=== PATIENT | male | born 1970 | race Caucasian/White ===

== ENCOUNTER 2023-03-25 08:21 | Inpatient (IN) | payer OTHER, SELFPAY ==
[2023-03-25 08:23] VITALS: BP 166/93; PULSE 96; RESP 22; TEMP 34.4; O2SAT 91; BMI 29.5
--- NOTE | 2023-03-25 08:40 | EDS_ITS ---
HPI History of Present Illness Chief Complaint: Substance Abuse Informant: patient Onset/Context/Timing Onset: Today Context: Gradual Onset Timing: Continuous Worsened by: Nothing Relieved by: Nothing Associated Symptoms Associated Symptoms: Negative for vomiting*, diarrhea*, fever*, rash*, seizure, tremor, palpatations, change in mental status, trauma, suicidal ideation or homicidal ideation Narrative Narrative: Patient presents requesting alcohol detox. Patient states he drinks approximately 12 beers per day. Patient states he has been drinking for the past 10 years. Patient denies any prior detox admissions. Patient states his last drink was approximately 7 AM today. Patient denies any suicidal or homicidal ideations. Patient denies any palpitations, seizures, or tremors. Patient denies any visual or auditory hallucinations. Patient denies any zeenat sea, vomiting, or diarrhea. PFSH PFSH Medical History no medical history no medical history Home Medications furosemide 20 mg tablet 20 mg PO DAILY 03/25/23 [History Last Taken 03/24/23] Allergy/AdvReac Type Severity Reaction Status Date / Time No Known Allergies Allergy Verified 03/25/23 08:22 Surgical History (Updated 03/25/23 @ 08:[address] Scott Robin DO) History of lumbar fusion History of lumbar laminectomy Social History Smoking Status: Current every day smoker tobacco type: cigarettes ROS ROS ED Constitutional Constitutional ED: Reports chills and subjective; Denies fever(s) Eyes Eyes: Denies blurry vision or change in vision ENT ENT ED: Denies rhinorrhea or sore throat Cardiovascular Cardiovascular: Denies chest pain or palpitations Respiratory/Chest Respiratory/Chest: Denies cough or dyspnea Gastrointestinal Gastrointestinal: Denies nausea or vomiting Genitourinary Genitourinary ED: Denies dysuria or hematuria Musculoskeletal Musculoskeletal: Denies back pain or neck pain Integumentary Denies abscess or rash Neurologic Neurologic: Denies headache(s) or weakness Allergic/Immunologic Allergic/Immunologic ED: Denies mouth swelling or urticaria EXAM Physical Exam Const Vital Signs: 03/25/23 08:23 Temperature 94 F L Temperature Source Temporal Pulse Rate 96 Respiratory Rate 22 H Blood Pressure 166/93 H Blood Pressure Mean 117 Pulse Ox 91 Oxygen Delivery Method Room Air Positive well nourished and well developed General Appearance ED: well developed and NAD HEENT Reports moist mucous membranes Eyes General Eye ED: Yes scleral icterus Neck supple and no JVD Resp normal respiratory effort and clear to auscultation bilaterally Cardio regular rate, regular rhythm and no murmurs GI normal to inspection, nondistended, normoactive bowel sounds and non-tender Palpation: soft Extremity normal to inspection General Extremety ED: Negative for edema or tenderness General Extremity: Negative for edema Neuro oriented x3, CN's II-XII intact bilaterally and no sensory deficits noted Sensorium / Orientation: alert Motor Exam: strength 5/5 throughout Psych mental status grossly normal MDM MDM MDM Narrative Medical decision making narrative: Medical screening labs will be obtained. CBC will be obtained to assess for leukocytosis and anemia. Comprehensive metabolic profile will be obtained to assess for hepatic function, renal function, and electrolyte abnormality. Lipase will be obtained to assess for alcoholic pancreatitis. PT was INR and PTT will be obtained to assess for coagulopathy. Serum alcohol level will be obtained to assess for alcohol intoxication. Urine tox screen will be obtained to assess for substance abuse. Case will be discussed with the hospitalist for admission. Lab Data Attestation: I reviewed the patient's lab results. Lab results narrative: CBC was reviewed and showed a slightly low white blood cell count at 4.3. Platelets were slightly low at 127. PT with INR and PTT were reviewed. Pro time was 15.3 and INR is 1.2. PTT was normal. Comprehensive metabolic profile was reviewed. Potassium was slightly low at 2.8. AST was slightly elevated at 46. ALT was normal at 29. Bilirubin was normal. Alkaline phos was slightly elevated at 157. Lipase was reviewed and was normal at 75. Serum alcohol level was reviewed and was elevated at 190. Labs: Laboratory Results - last 24 hr 03/25/23 09:20 WBC 4.3 L RBC 4.06 L Hgb 14.7 Hct 44.6 MCV 109.9 H MCH 36.2 H MCHC 33.0 RDW Std Deviation 55.5 H RDW Coeff of Fabio 13.4 Plt Count 127 L MPV 9.5 Immature Gran % (Auto) 0.200 Neut % (Auto) 76.3 H Lymph % (Auto) 14.7 L Upson % (Auto) 7.8 Eos % (Auto) 0.5 Baso % (Auto) 0.5 Absolute Neuts (auto) 3.3 Absolute Lymphs (auto) 0.64 L Nucleated RBC % 0 PT 15.3 H INR 1.2 APTT 26.5 Sodium 136 Potassium 2.8 L Chloride 96 L Carbon Dioxide 32.0 Anion Gap 8 BUN 4 L Creatinine 0.83 Estim Creat Clear Calc 116.87 Est GFR (MDRD) Af Amer 126 Est GFR (MDRD) Non-Af 104 BUN/Creatinine Ratio 4.8 L Glucose 138 H Calcium 8.2 L Total Bilirubin 0.60 AST 46 H ALT 29 Alkaline Phosphatase 157 H Total Protein 6.0 L Albumin 3.0 L Globulin 3.0 Albumin/Globulin Ratio 1.0 Lipase 75 Ethyl Alcohol 190.0 Management Discussion w/another healthcare provider: Hospitalist Treatment and Re-Evaluation Narrative: Patient was given a dose of oral potassium here. Patient was given a nicotine patch. Case was discussed with the hospitalist. She will be in to evaluate the patient and admit the patient to the hospital for alcohol detox. Patient understood and was agreeable with the plan. All questions were answered. Discharge Plan Triage Chief Complaint: Substance Abuse ED Provider: Scott Robin Dx/Rx/DC Orders Clinical Impression: ETOH abuse, Alcohol withdrawal, Tobacco abuse Prescriptions: No Action furosemide 20 mg tablet 20 mg PO DAILY Primary Care Provider: Odalys Cardoso Referrals: Odalys Cardoso, [facility] [Primary Care Provider] - Disposition Disposition: Acute Care Hospital [facility]
[2023-03-25 09:35] LABS: Absolute Lymphocyte Count 0.64 X10^3/uL (0.83-4.51); Absolute Neutrophil Count 3.3 X10^3/uL (2.0-7.7); Basophil# 0.02 X10^3/uL; Basophil% 0.5 % (0-1); Eosinophil# 0.02 X10^3/uL; Eosinophils% 0.5 % (0-5); Hematocrit 44.6 % (40-54); Hemoglobin 14.7 g/dL (13.0-16.5); Lymphocyte # 0.64 X10^3/ul (0.83-4.51); Lymphocyte % 14.7 % (19-41); Mean Corpuscular Hgb 36.2 pg (27.0-32.0); Mean Corpuscular Volume 109.9 fL (80-94); Mean Platelet Vol. 9.5 fl (6.2-12.0); Monocyte# 0.34 X10^3/uL; Monocyte% 7.8 % (0-10); NRBC Flagged by Analyzer 0 % (0-5); Neutrophil # 3.31 X10^3/uL (2.7-7.7); Neutrophil % 76.3 % (47-70); Platelet Count 127 K/mm3 (150-450); RBC Distribution Width CV 13.4 % (11.6-14.6); RBC Distribution Width SD 55.5 fl (35.1-43.9); Red Blood Count 4.06 M/mm3 (4.6-6.2); White Blood Count 4.3 K/mm3 (4.4-11.0)
[2023-03-25 09:42] LABS: International Normalized Ratio 1.2; Partial Thromboplast Time 26.5 Seconds (24.1-36.2); Prothrombin Time (Protime)PT. 15.3 SECONDS (11.7-14.9)
[2023-03-25 09:50] LABS: AST(SGOT) 46 U/L (15-37); Alanine Aminotransfer ALT/SGPT 29 U/L (16-61); Alkaline Phosphatase 157 U/L (45-117); Anion Gap 8 (5-15); BUN 4 mg/dL (7-18); BUN/Creat Ratio 4.8 RATIO (10-20); Calcium,Total 8.2 mg/dL (8.5-10.1); Chloride 96 mmol/L (98-107); Creatinine, Serum 0.83 mg/dL (0.70-1.30); EST Glomerular Filtration Rate 104 mL/min (>60); Est Glom Filt Rate - Afr Amer 126 mL/min (>60); Estimated Creatinine Clearance 116.87 ml/min; Glucose 138 mg/dL (74-106); Lipase 75 U/L (13-75); Potassium 2.8 mmol/L (3.5-5.1); Sodium Level 136 mmol/L (136-145)
--- NOTE | 2023-03-25 09:57 | PCM.HP.STD ---
HPI - General General Date of Admission: 03/25/23 Date of Service: 03/25/23 Chief Complaint: Requesting alcohol detox HPI Narrative TU BASURTO, is a 52 M with history of tobacco use, alcohol use, spinal fusion laminectomy with provoked DVT in 2014 no longer on anticoagulation, DEMETRIO no longer using his CPAP who presented to [facility] 03/25/2023 requesting alcohol detox. He has drank 12 large 12% beers daily for many years and if he does not drink he gets significant shakes making it hard to even write, has not on longer than a day or 2 and many years without drinking due to the symptoms but is motivated to quit and said he has been unable to do so on his own which is why he chose today to come in. Last drink at 7 AM and his EtOH level was 190. Reports occasional marijuana use but denies any other substance use. Has never been through detox and denies any DTs, alcohol withdrawal hallucinations, seizures. Does report he has occasional dry cough possibly over a couple months and runny nose, said some off-and-on shortness of breath over time but he stopped using his inhalers and stopped using his CPAP as he did not think he needed them anymore. Denies any other specific complaints [facility] Medical History no medical history Home Medications furosemide 20 mg tablet 20 mg PO DAILY 03/25/23 [History Last Taken 03/24/23] Allergy/AdvReac Type Severity Reaction Status Date / Time No Known Allergies Allergy Verified 03/25/23 08:22 Surgical History (Updated 03/25/23 @ 08:[address] Scott Robin DO) History of lumbar fusion History of lumbar laminectomy Social History Smoking Status: Current every day smoker tobacco type: cigarettes ROS ROS Narrative General: Denies fever/chills HENT: Denies headache, occasional runny nose, denies sore throat EYES: Chronic changes in vision Resp: Occasional dry cough, denies shortness of breath at this time, endorses occasional shortness of breath Cardiac: Denies chest pain GI: Denies abdominal pain, denies changes in bowel, denies nausea/vomiting : Denies changes in urination Extremity: Denies swelling at this time MSK: Denies local weakness Neuro: Denies any numbness/tingling Heme: Denies any bleeding or bruising Skin: Chronic LE changes, blister that is now flacid and not draining on second toe with no erythema or pain Psychiatric: No complaints voiced Vital Signs Vital Signs Vital Signs: 03/25/23 08:23 Temperature 94 F L Temperature Source Temporal Pulse Rate 96 Respiratory Rate 22 H Blood Pressure 166/93 H Blood Pressure Mean 117 Pulse Ox 91 Oxygen Delivery Method Room Air Weight Weight: 98.747 kg Body Mass Index (BMI) 29.5 Physical Exam Narrative General: Alert, oriented, no apparent distress HEENT: Atraumatic, normocephalic Eyes: Anicteric, slightly injected conjunctive a, extraocular movements grossly intact Neck: Supple Respiratory: Somewhat coarse on right greater than left, normal respiratory effort Cardiovascular: Regular rate and rhythm GI: Soft, nontender, nondistended Extremities: No pitting edema Musculoskeletal: Moving all extremities Neuro: No overt focal neurological deficits Skin: Chronic changes in bilateral lower extremities Psych: Cooperative Results Lab / Micro Data 03/25/23 09:20 03/25/23 09:20 Labs: Laboratory Results - last 24 hr 03/25/23 09:20: WBC 4.3 L, RBC 4.06 L, Hgb 14.7, Hct 44.6, MCV 109.9 H, MCH 36.2 H, MCHC 33.0, RDW Std Deviation 55.5 H, RDW Coeff of Fabio 13.4, Plt Count 127 L, MPV 9.5, Immature Gran % (Auto) 0.200, Neut % (Auto) 76.3 H, Lymph % (Auto) 14.7 L, Letcher % (Auto) 7.8, Eos % (Auto) 0.5, Baso % (Auto) 0.5, Absolute Neuts (auto) 3.3, Absolute Lymphs (auto) 0.64 L, Nucleated RBC % 0, PT 15.3 H, INR 1.2, APTT 26.5, Sodium 136, Potassium 2.8 L, Chloride 96 L, Carbon Dioxide 32.0, Anion Gap 8, BUN 4 L, Creatinine 0.83, Estim Creat Clear Calc 116.87, Est GFR (MDRD) Af Amer 126, Est GFR (MDRD) Non-Af 104, BUN/Creatinine Ratio 4.8 L, Glucose 138 H, Calcium 8.2 L, Total Bilirubin 0.60, AST 46 H, ALT 29, Alkaline Phosphatase 157 H, Total Protein 6.0 L, Albumin 3.0 L, Globulin 3.0, Albumin/Globulin Ratio 1.0, Lipase 75, Ethyl Alcohol 190.0 Assessment & Plan Assessment/Plan (1) ETOH abuse: (2) DEMETRIO (obstructive sleep apnea): (3) Tobacco abuse: (4) Hypokalemia: PLAN: Plan #Alcohol use disorder - We will begin CIWA every 4 for 24 hours, then every 6 for 24 hours, then every 12 until discharge -Will begin phenobarbital taper, given extensive drinking history will also have Ativan for additional as needed coverage -Gabapentin 300 mg every 8 as needed -Will start Bentyl and hydroxyzine as needed as well as loperamide as needed -Trazodone 100 mg p.o. nightly as needed sleep -Begin thiamine and folic acid supplementation -Zofran as needed for nausea -Case management consult to assist with discharge planning -EtOH level 109 #DEMETRIO -Not compliant with home CPAP, CPAP ordered for here and will encourage compliance on an outpatient basis -Not actively complaining of shortness of breath with O2 sat suboptimal and patient reports history of COPD and previous inhalers, will start nebs, can consider chest x-ray if no improvement or if patient has includes complaints #Elevated MCV -Without acute anemia, likely secondary to nutritional deficiencies, start B12 and folate and will check levels #Hypokalemia -Replace #Tobacco use -Advise cessation -Patient agreeable to nicotine replacement #History of provoked DVT and PE -In 2014 after a spinal fusion and laminectomy -Completed anticoagulation and has not required any since per patient #DVT ppx: Lovenox subcu Kaylee Maravilla MD Time spent in the patient's overall evaluation,decision-making process, review of diagnostic data, adjustment of management, discussion with other providers, nursing nursing and ancillary staff involved in patient's care documentation, 60 minutes Charges/Coding Visit Charges Inpatient E&M: 41847 Init Hosp L2
[2023-03-25 10:25] VITALS: BP 170/90; PULSE 92; RESP 18; TEMP 36.7; O2SAT 93
[2023-03-25 11:13] VITALS: BMI 29.4
[2023-03-25 11:21] VITALS: BP 142/67; PULSE 88; RESP 16; TEMP 36.4; O2SAT 97
[2023-03-25 11:23] LABS: Amphetamine Urine VISTA NEGATIVE (<1000 ng/mL); Barbiturate Urine VISTA NEGATIVE (< 200 ng/mL); Benzodiazepine Urine VISTA NEGATIVE (< 200 ng/mL); Cocaine Urine VISTA NEGATIVE (< 300 ng/mL); Ecstacy Urine VISTA NEGATIVE (< 500 ng/mL); Methadone Urine VISTA NEGATIVE (< 300 ng/mL); PCP Urine VISTA NEGATIVE (< 25 ng/mL); THC Urine VISTA POSITIVE (< 50 ng/mL); Vista UDS pH Range 6
[2023-03-25] MEDS: Potassium Chloride Oral Tablet 20 MEQ 40 MEQ PO (11:35)
[2023-03-25] MEDS: Phenobarbital 32.4 MG Tablet PO ×3 (12:01→19:57)
[2023-03-25] MEDS: Enoxaparin 40 MG/0.4 ML Syringe SC (12:01)
[2023-03-25] MEDS: Potassium Chloride Oral Tablet 20 MEQ 60 MEQ PO (12:45)
[2023-03-25 15:22] VITALS: BP 152/78; PULSE 98; RESP 16; TEMP 36.6; O2SAT 92
[2023-03-25] MEDS: Gabapentin 300 MG Capsule PO (18:02)
[2023-03-25] MEDS: Dicyclomine 10 MG Capsule 20 MG PO (18:43)
[2023-03-25] MEDS: Ondansetron 8 MG Tablet PO (18:43)
[2023-03-25 19:25] VITALS: PULSE 86; RESP 18; O2SAT 86
[2023-03-25] MEDS: Ipratropium/Albuterol Sulfate 3 ML AMPUL.NEB INHALATION (19:25)
--- NOTE | 2023-03-25 19:25 | CPS ---
Added oxygen to pt at 3 lpm via nasal cannula.
[2023-03-25] MEDS: hydrOXYzine PAM 25 MG Capsule 50 MG PO (19:57)
[2023-03-25 20:00] VITALS: BP 161/92; PULSE 88; RESP 20; TEMP 36.7; O2SAT 98
[2023-03-26] VITALS (8 sets, daily range): BP systolic 132–152; BP diastolic 68–90; PULSE 87–99; RESP 14–20; TEMP 36.8–37.2; O2SAT 93–99
[2023-03-26] MEDS: hydrOXYzine PAM 25 MG Capsule 50 MG PO ×6 (00:23→23:54)
[2023-03-26] MEDS: Phenobarbital 32.4 MG Tablet PO ×7 (00:23→23:53)
[2023-03-26] MEDS: traZODone 100 MG Tablet PO ×2 (00:23→23:53)
[2023-03-26] MEDS: Ipratropium/Albuterol Sulfate 3 ML AMPUL.NEB INHALATION ×4 (01:05→19:29)
[2023-03-26 07:41] LABS: ALB/GLOB Ratio 0.9 RATIO (0.9-2.4); AST(SGOT) 37 U/L (15-37); Alanine Aminotransfer ALT/SGPT 22 U/L (16-61); Albumin, Serum 2.8 g/dL (3.2-5.0); Alkaline Phosphatase 154 U/L (45-117); Anion Gap 5 (5-15); BUN 6 mg/dL (7-18); BUN/Creat Ratio 6.8 RATIO (10-20); Calcium,Total 8.2 mg/dL (8.5-10.1); Chloride 97 mmol/L (98-107); Creatinine, Serum 0.88 mg/dL (0.70-1.30); EST Glomerular Filtration Rate 98 mL/min (>60); Est Glom Filt Rate - Afr Amer 118 mL/min (>60); Estimated Creatinine Clearance 110.23 ml/min; Globulin 3.2 g/dL (2.2-4.2); Glucose 90 mg/dL (74-106); Magnesium 1.5 mg/dL (1.6-2.6); Potassium 4.1 mmol/L (3.5-5.1); Sodium Level 136 mmol/L (136-145); Thyroid Stim Hormone (TSH) 5.43 uIU/mL (0.358-3.74)
[2023-03-26 08:32] LABS: Vitamin B12 252 pg/mL (211-911)
[2023-03-26] MEDS: Gabapentin 300 MG Capsule PO ×2 (08:33→16:21)
[2023-03-26] MEDS: Cyanocobalamin 500 MCG Tablet 1000 MCG PO (08:33)
[2023-03-26] MEDS: Thiamine Hydrochloride 100 MG Tablet PO (08:34)
[2023-03-26] MEDS: Enoxaparin 40 MG/0.4 ML Syringe SC (08:34)
[2023-03-26] MEDS: Folic Acid 1 MG Tablet PO (08:34)
--- NOTE | 2023-03-26 09:40 | PN.HOSP_ITS ---
Reason for Visit Reason for Visit: Diagnoses Hypokalemia (03/25/23) Alcohol abuse, uncomplicated (03/25/23) Obstructive sleep apnea (adult) (pediatric) (03/25/23) Tobacco use (03/25/23) Subjective Subjective Feeling better today, still slightly shaky but less so, when he starts to fall asleep however he will start moving his arms around like he is trying to do his work but wakes up and is cognizant that this is not what he had been doing. Oth erwise denies any AH/ Objective Data Objective Data Vital Signs: Vital Signs Temp Pulse Resp BP Pulse Ox O2 Del Method O2 Flow Rate 99.0 F 88 16 151/90 H 93 Nasal Cannula 3 03/26/23 04:38 03/26/23 06:59 03/26/23 06:59 03/26/23 04:38 03/26/23 06:59 03/26/23 06:59 03/26/23 06:59 Oxygen Flow Rate (L/min) 3 Oxygen Delivery Method Nasal Cannula Weight: 98.3 kg Body Mass Index (BMI) 29.4 Intake & Output: Intake and Output for Last 24 Hours 03/24/23 03/25/23 03/26/23 23:59 23:59 23:59 Intake Total 400 / 1200 800 / 800 Balance 400 / 1200 800 / 800 Lab / Micro Data 03/25/23 09:20 03/26/23 06:28 Labs: Laboratory Results - last 24 hr 03/25/23 09:20: PT 15.3 H, INR 1.2, APTT 26.5, Sodium 136, Potassium 2.8 L, Chloride 96 L, Carbon Dioxide 32.0, Anion Gap 8, BUN 4 L, Creatinine 0.83, Estim Creat Clear Calc 116.87, Est GFR (MDRD) Af Amer 126, Est GFR (MDRD) Non-Af 104, BUN/Creatinine Ratio 4.8 L, Glucose 138 H, Calcium 8.2 L, Total Bilirubin 0.60, AST 46 H, ALT 29, Alkaline Phosphatase 157 H, Total Protein 6.0 L, Albumin 3.0 L , Globulin 3.0, Albumin/Globulin Ratio 1.0, Lipase 75, Ethyl Alcohol 190.0 03/25/23 11:00: Urine Opiates Screen NEGATIVE, Urine Methadone Screen NEGATIVE, Ur Barbiturates Screen NEGATIVE, Ur Phencyclidine Scrn NEGATIVE, Ur Amphetamines Screen NEGATIVE, MDMA (Ecstasy) Screen NEGATIVE, U Benzodiazepines Scrn NEGATIVE, Urine Cocaine Screen NEGATIVE, U Cannabinoids Screen POSITIVE H, Ur Drug Screen Comment 03/26/23 06:28: Sodium 136, Potassium 4.1, Chloride 97 L, Carbon Dioxide 34.0 H, Anion Gap 5, BUN 6 L, Creatinine 0.88, Estim Creat Clear Calc 110.23, Est GFR (M DRD) Af Amer 118, Est GFR (MDRD) Non-Af 98, BUN/Creatinine Ratio 6.8 L, Glucose 90, Calcium 8.2 L, Magnesium 1.5 L, Total Bilirubin 1.90 H, AST 37, ALT 22, Alkaline Phosphatase 154 H, Total Protein 6.0 L, Albumin 2.8 L, Globulin 3.2, Albumin/Globulin Ratio 0.9, Vitamin B12 252, Folate 1.20 L, TSH 5.43 H Physical Exam Narrative General: Alert, oriented, no apparent distress HEENT: Atraumatic, normocephalic Eyes: Anicteric, slightly injected conjunctive a, extraocular movements grossly intact Neck: Supple Respiratory: Scattered wheezes Cardiovascular: Regular rate and rhythm GI: Soft, nontender, nondistended Extremities: No pitting edema Musculoskeletal: Moving all extremities Neuro: No overt focal neurological deficits Skin: Chronic changes in bilateral lower extremities Psych: Cooperative Assessment & Plan Assessment/Plan (1) ETOH abuse: (2) DEMETRIO (obstructive sleep apnea): (3) Tobacco abuse: (4) Hypokalemia: PLAN: Plan #Alcohol use disorder - We will begin CIWA every 4 for 24 hours, then every 6 for 24 hours, then every 12 until discharge -Will begin phenobarbital taper, given extensive drinking history will also have Ativan for additional as needed coverage -Gabapentin 300 mg every 8 as needed -Will start Bentyl and hydroxyzine as needed as well as loperamide as needed -Trazodone 100 mg p.o. nightly as needed sleep -Begin thiamine and folic acid supplementation -Zofran as needed for nausea -Case management consult to assist with discharge planning -EtOH level 109 -03/26: Continue detox #Hypoxia -Acute hypoxia likely on chronic, had desaturation of 86% yesterday evening and was placed on O2 -Likely secondary to his underlying COPD for which he has not been treating as well as his DEMETRIO for which she was noncompliant with CPAP -Nebs -We will likely need ambulated prior to DC to assess for any home O2 needs and will need to follow-up with pulmonology or his PCP for further management. Stressed compliance with medications #DEMETRIO -Not compliant with home CPAP, CPAP ordered for here and will encourage compliance on an outpatient basis #Elevated MCV -Without acute anemia, likely secondary to nutritional deficiencies, start B12 and folate and will check levels -03/26: B12 lower limit of normal, folate low, continue replacement #Hypokalemia -Replace #Tobacco use -Advise cessation -Patient agreeable to nicotine replacement #History of provoked DVT and PE -In 2014 after a spinal fusion and laminectomy -Completed anticoagulation and has not required any since per patient #DVT ppx: Lovenox subcu Kaylee Maravilla MD Time spent in the patient's overall evaluation,decision-making process, review of diagnostic data, adjustment of management, discussion with other providers, nursing nursing and ancillary staff involved in patient's care documentation, 30 minutes Charges/Coding Visit Charges Inpatient E&M: 69978 Subs Hosp L2
[2023-03-26] MEDS: Magnesium Sulfate 4gm/100mL 4 GM/100 ML IV.SOLN. IV (10:42)
--- NOTE | 2023-03-26 11:59 | ADDICTION ---
This medical technical writer met with PT to conduct ASAM, MSE, AUDIT assessments and to plan for d/c. PT A+Ox4 and participated actively. All assessments completed and placed in PT's chart. PT plans to f/u with [facility] in [place] for follow-up treatment services. PT did not indicate a need for transportation post d/c from [facility].
[2023-03-27] VITALS (9 sets, daily range): BP systolic 142–158; BP diastolic 70–89; PULSE 70–96; RESP 16–18; TEMP 36.5–36.9; O2SAT 92–98
[2023-03-27] MEDS: hydrOXYzine PAM 25 MG Capsule 50 MG PO ×2 (04:55→16:08)
[2023-03-27] MEDS: Phenobarbital 32.4 MG Tablet PO ×5 (04:55→19:57)
[2023-03-27] MEDS: Ipratropium/Albuterol Sulfate 3 ML AMPUL.NEB INHALATION ×3 (07:17→18:44)
--- NOTE | 2023-03-27 07:46 | PN.HOSP_ITS ---
Reason for Visit Reason for Visit: Diagnoses Hypokalemia (03/25/23) Alcohol abuse, uncomplicated (03/25/23) Obstructive sleep apnea (adult) (pediatric) (03/25/23) Tobacco use (03/25/23) Subjective Subjective Patient continues to have improvement in the shaking, tolerating detox well Objective Data Objective Data Vital Signs: Vital Signs Temp Pulse Resp BP Pulse Ox O2 Del Method O2 Flow Rate 97.7 F L 82 18 154/88 H 98 Nasal Cannula 3 03/27/23 05:00 03/27/23 07:19 03/27/23 07:19 03/27/23 05:00 03/27/23 07:19 03/27/23 07:19 03/27/23 07:19 Oxygen Flow Rate (L/min) 3 Oxygen Delivery Method Nasal Cannula Weight: 98.3 kg Body Mass Index (BMI) 29.4 Intake & Output: Intake and Output for Last 24 Hours 03/25/23 03/26/23 03/27/23 23:59 23:59 23:59 Intake Total 400 / 1200 2900 / 2900 243.75 / 243.75 Balance 400 / 1200 2900 / 2900 243.75 / 243.75 Lab / Micro Data 03/25/23 09:20 03/26/23 06:28 Labs: Laboratory Results - last 24 hr 03/26/23 06:28: Vitamin B12 252 Physical Exam Narrative General: Alert, oriented, no apparent distress HEENT: Atraumatic, normocephalic Eyes: Anicteric, slightly injected conjunctive a, extraocular movements grossly intact Neck: Supple Respiratory: Scattered wheezes Cardiovascular: Regular rate and rhythm GI: Soft, nontender, nondistended Extremities: No pitting edema Musculoskeletal: Moving all extremities Neuro: No overt focal neurological deficits Skin: Chronic changes in bilateral lower extremities Psych: Cooperative Assessment & Plan Assessment/Plan (1) ETOH abuse: (2) DEMETRIO (obstructive sleep apnea): (3) Tobacco abuse: (4) Hypokalemia: PLAN: Plan #Alcohol use disorder - We will begin CIWA every 4 for 24 hours, then every 6 for 24 hours, then every 12 until discharge -Will begin phenobarbital taper, given extensive drinking history will also have Ativan for additional as needed coverage -Gabapentin 300 mg every 8 as needed -Will start Bentyl and hydroxyzine as needed as well as loperamide as needed -Trazodone 100 mg p.o. nightly as needed sleep -Begin thiamine and folic acid supplementation -Zofran as needed for nausea -Case management consult to assist with discharge planning -EtOH level 109 -03/26: Continue detox -03/27: Patient continues to do well with detox, continue phenobarb taper, will be completed Friday at 2 PM. Patient plans to follow-up with [facility] in [place] for follow-up treatment services #Hypoxia?improved -Acute hypoxia likely on chronic, had desaturation of 86% yesterday evening and was placed on O2 -Likely secondary to his underlying COPD for which he has not been treating as well as his DEMETRIO for which she was noncompliant with CPAP -Nebs -We will likely need ambulated prior to DC to assess for any home O2 needs and will need to follow-up with pulmonology or his PCP for further management. Stressed compliance with medications -03/27: Improved with nebs, will resume his home furosemide as well, may need ambulated for O2 upon discharge and/or inhaler sent in if patient amenable, incentive spirometry ordered #DEMETRIO -Not compliant with home CPAP, CPAP ordered for here and will encourage compliance on an outpatient basis #Elevated MCV -Without acute anemia, likely secondary to nutritional deficiencies, start B12 and folate and will check levels -03/26: B12 lower limit of normal, folate low, continue replacement #Hypokalemia -Replace #Tobacco use -Advise cessation -Patient agreeable to nicotine replacement #History of provoked DVT and PE -In 2014 after a spinal fusion and laminectomy -Completed anticoagulation and has not required any since per patient #DVT ppx: Lovenox subcu Kaylee Maravilla MD Time spent in the patient's overall evaluation,decision-making process, review of diagnostic data, adjustment of management, discussion with other providers, nursing nursing and ancillary staff involved in patient's care documentation, 30 minutes Charges/Coding Visit Charges Inpatient E&M: 39880 Subs Hosp L2
[2023-03-27] MEDS: Thiamine Hydrochloride 100 MG Tablet PO (08:05)
[2023-03-27] MEDS: Cyanocobalamin 500 MCG Tablet 1000 MCG PO (08:05)
[2023-03-27] MEDS: Folic Acid 1 MG Tablet PO (08:05)
[2023-03-27] MEDS: Furosemide 20 MG Tablet PO (10:54)
[2023-03-27] MEDS: Enoxaparin 40 MG/0.4 ML Syringe SC (10:54)
[2023-03-27] MEDS: Gabapentin 300 MG Capsule PO (16:08)
[2023-03-28] VITALS (7 sets, daily range): BP systolic 138–161; BP diastolic 82–97; PULSE 78–86; RESP 16–18; TEMP 36.6–36.8; O2SAT 93–99
[2023-03-28] MEDS: Phenobarbital 32.4 MG Tablet PO ×4 (01:52→19:43)
[2023-03-28 06:52] LABS: Absolute Lymphocyte Count 0.61 X10^3/uL (0.83-4.51); Absolute Neutrophil Count 4.3 X10^3/uL (2.0-7.7); Basophil# 0.02 X10^3/uL; Basophil% 0.4 % (0-1); Eosinophil# 0.04 X10^3/uL; Eosinophils% 0.7 % (0-5); Hematocrit 40.3 % (40-54); Hemoglobin 13.6 g/dL (13.0-16.5); Lymphocyte # 0.61 X10^3/ul (0.83-4.51); Lymphocyte % 11.2 % (19-41); Mean Corp Hgb Conc 33.7 g/dL (32-36); Mean Corpuscular Hgb 36.9 pg (27.0-32.0); Mean Corpuscular Volume 109.2 fL (80-94); Mean Platelet Vol. 10.3 fl (6.2-12.0); Monocyte# 0.41 X10^3/uL; Monocyte% 7.5 % (0-10); NRBC Flagged by Analyzer 0 % (0-5); Neutrophil # 4.33 X10^3/uL (2.7-7.7); Neutrophil % 79.6 % (47-70); POSITIVE COUNT YES; Platelet Count 91 K/mm3 (150-450); RBC Distribution Width CV 13.3 % (11.6-14.6); RBC Distribution Width SD 54.6 fl (35.1-43.9); Red Blood Count 3.69 M/mm3 (4.6-6.2); White Blood Count 5.4 K/mm3 (4.4-11.0)
[2023-03-28 06:54] LABS: Differential Indicated SCAN CRITERIA MET
[2023-03-28] MEDS: Ipratropium/Albuterol Sulfate 3 ML AMPUL.NEB INHALATION ×3 (07:08→19:20)
[2023-03-28 07:45] LABS: ALB/GLOB Ratio 0.8 RATIO (0.9-2.4); AST(SGOT) 27 U/L (15-37); Alanine Aminotransfer ALT/SGPT 18 U/L (16-61); Albumin, Serum 2.5 g/dL (3.2-5.0); Alkaline Phosphatase 118 U/L (45-117); Anion Gap 3 (5-15); BUN 6 mg/dL (7-18); BUN/Creat Ratio 12.3 RATIO (10-20); Calcium,Total 8.3 mg/dL (8.5-10.1); Chloride 99 mmol/L (98-107); Creatinine, Serum 0.49 mg/dL (0.70-1.30); EST Glomerular Filtration Rate 193 mL/min (>60); Est Glom Filt Rate - Afr Amer 234 mL/min (>60); Estimated Creatinine Clearance 197.96 ml/min; Globulin 3.3 g/dL (2.2-4.2); Glucose 73 mg/dL (74-106); Magnesium 2.2 mg/dL (1.6-2.6); Potassium 4.9 mmol/L (3.5-5.1); Protein, Total 5.8 g/dL (6.4-8.2); Sodium Level 133 mmol/L (136-145)
--- NOTE | 2023-03-28 07:53 | PCM.PN.HOSP ---
Reason for Visit Reason for Visit: Diagnoses Hypokalemia (03/25/23) Alcohol abuse, uncomplicated (03/25/23) Obstructive sleep apnea (adult) (pediatric) (03/25/23) Tobacco use (03/25/23) Subjective Subjective Still feeling somewhat shaky but better overall today Objective Data Objective Data Vital Signs: Vital Signs Temp Pulse Resp BP Pulse Ox O2 Del Method O2 Flow Rate 97.8 F 78 18 147/82 H 93 Nasal Cannula 2 03/28/23 02:00 03/28/23 07:08 03/28/23 07:08 03/28/23 02:00 03/28/23 07:08 03/28/23 07:08 03/28/23 07:08 Oxygen Flow Rate (L/min) 2 Oxygen Delivery Method Nasal Cannula Weight: 98.3 kg Body Mass Index (BMI) 29.4 Intake & Output: Intake and Output for Last 24 Hours 03/26/23 03/27/23 03/28/23 23:59 23:59 23:59 Intake Total 2900 / 2900 1443.75 / 1443.75 Balance 2900 / 2900 1443.75 / 1443.75 Lab / Micro Data 03/28/23 05:55 03/28/23 05:55 Labs: Laboratory Results - last 24 hr 03/28/23 05:55: WBC 5.4, RBC 3.69 L, Hgb 13.6, Hct 40.3, MCV 109.2 H, MCH 36.9 H, MCHC 33.7, RDW Std Deviation 54.6 H, RDW Coeff of Fabio 13.3, Plt Count 91 L, MPV 10.3, Immature Gran % (Auto) 0.600, Neut % (Auto) 79.6 H, Lymph % (Auto) 11.2 L, Arroyo % (Auto) 7.5, Eos % (Auto) 0.7, Baso % (Auto) 0.4, Absolute Neuts (auto) 4.3, Absolute Lymphs (auto) 0.61 L, Nucleated RBC % 0, Sodium 133 L, Potassium 4.9, Chloride 99, Carbon Dioxide 31.0, Anion Gap 3 L, BUN 6 L, Creatinine 0.49 L, Estim Creat Clear Calc 197.96, Est GFR (MDRD) Af Amer 234, Est GFR (MDRD) Non-Af 193, BUN/Creatinine Ratio 12.3, Glucose 73 L, Calcium 8.3 L, Magnesium 2.2, Total Bilirubin 1.20 H, AST 27, ALT 18, Alkaline Phosphatase 118 H, Total Protein 5.8 L, Albumin 2.5 L, Globulin 3.3, Albumin/Globulin Ratio 0.8 L Physical Exam Narrative General: Alert, oriented, no apparent distress HEENT: Atraumatic, normocephalic Eyes: Anicteric, slightly injected conjunctive a, extraocular movements grossly intact Neck: Supple Respiratory: Scattered wheezes, slightly improved today Cardiovascular: Regular rate and rhythm GI: Soft, nontender, nondistended Extremities: No pitting edema Musculoskeletal: Moving all extremities Neuro: No overt focal neurological deficits Skin: Chronic changes in bilateral lower extremities Psych: Cooperative Assessment & Plan Assessment/Plan (1) ETOH abuse: (2) DEMETRIO (obstructive sleep apnea): (3) Tobacco abuse: (4) Hypokalemia: PLAN: Plan #Alcohol use disorder - We will begin CIWA every 4 for 24 hours, then every 6 for 24 hours, then every 12 until discharge -Will begin phenobarbital taper, given extensive drinking history will also have Ativan for additional as needed coverage -Gabapentin 300 mg every 8 as needed -Will start Bentyl and hydroxyzine as needed as well as loperamide as needed -Trazodone 100 mg p.o. nightly as needed sleep -Begin thiamine and folic acid supplementation -Zofran as needed for nausea -Case management consult to assist with discharge planning -EtOH level 109 -03/26: Continue detox -03/27: Patient continues to do well with detox, continue phenobarb taper, will be completed Friday at 2 PM. Patient plans to follow-up with [facility] in [place] for follow-up treatment services -03/28: Finish out detox through tomorrow and likely DC home at that time #Hypoxia?improved -Acute hypoxia likely on chronic, had desaturation of 86% yesterday evening and was placed on O2 -Likely secondary to his underlying COPD for which he has not been treating as well as his DEMETRIO for which she was noncompliant with CPAP -Nebs -We will likely need ambulated prior to DC to assess for any home O2 needs and will need to follow-up with pulmonology or his PCP for further management. Stressed compliance with medications -03/27: Improved with nebs, will resume his home furosemide as well, may need ambulated for O2 upon discharge and/or inhaler sent in if patient amenable, incentive spirometry ordered -03/28: O2 sat waxes and wanes, 93% this a.m. on 2 L, suspect component of sleep apnea decreasing sats overnight as he was noncompliant with CPAP at home #DEMETRIO -Not compliant with home CPAP, CPAP ordered for here and will encourage compliance on an outpatient basis -03/28: Encourage patient to follow-up to resume CPAP treatment #Elevated MCV -Without acute anemia, likely secondary to nutritional deficiencies, start B12 and folate and will check levels -03/26: B12 lower limit of normal, folate low, continue replacement -03/28: Hemoglobin 13.6, MCV remains high. Will likely need folic acid and B12 as well as thiamine supplementation on discharge #Thrombocytopenia -Likely secondary to underlying liver dysfunction from chronic alcohol use -We will likely need repeat CBC on outpatient basis and may need to have further work-up and management moving forward #Elevated TSH -TSH 5.43 -We will check free T4 #Hypokalemia?resolved -Replace -Repeat BMP 03/28 with resolved hypokalemia #Tobacco use -Advise cessation -Patient agreeable to nicotine replacement #History of provoked DVT and PE -In 2014 after a spinal fusion and laminectomy -Completed anticoagulation and has not required any since per patient #DVT ppx: Lovenox subcu Kaylee Maravilla MD Time spent in the patient's overall evaluation,decision-making process, review of diagnostic data, adjustment of management, discussion with other providers, nursing nursing and ancillary staff involved in patient's care documentation, 36 minutes Charges/Coding Visit Charges Inpatient E&M: 16985 Subs Hosp L2
[2023-03-28 08:02] LABS: Platelet Estimate SLT DEC (ADEQ); Platelet Morphology LARGE
[2023-03-28 08:03] LABS: Macrocytosis 1+
[2023-03-28] MEDS: Thiamine Hydrochloride 100 MG Tablet PO (08:52)
[2023-03-28] MEDS: Furosemide 20 MG Tablet PO (08:52)
[2023-03-28] MEDS: Folic Acid 1 MG Tablet PO (08:52)
[2023-03-28] MEDS: Cyanocobalamin 500 MCG Tablet 1000 MCG PO (08:53)
--- NOTE | 2023-03-28 16:21 | CASEMGMT ---
Hospitalist would like pt to have amb pox testing prior to dc. RN CM into pt room to make aware. Pt provided with a verbal local in network list of DME companies, pt chose [employer]. Pt aware of homegoing oxygen instructions should he need it. Green sheet on chart. Pt reports he wears a CPAP at night. Pt denies any further needs.
[2023-03-29 02:00] VITALS: BP 140/72; PULSE 72; RESP 16; TEMP 36.6; O2SAT 100
[2023-03-29] MEDS: Phenobarbital 32.4 MG Tablet PO ×2 (02:04→08:46)
[2023-03-29 06:52] VITALS: PULSE 75; RESP 16; O2SAT 96
[2023-03-29] MEDS: Ipratropium/Albuterol Sulfate 3 ML AMPUL.NEB INHALATION (06:52)
--- NOTE | 2023-03-29 07:51 | PCM.PN.HOSP ---
Reason for Visit Reason for Visit: Diagnoses Hypokalemia (03/25/23) Alcohol abuse, uncomplicated (03/25/23) Obstructive sleep apnea (adult) (pediatric) (03/25/23) Tobacco use (03/25/23) Objective Data Objective Data Vital Signs: Vital Signs Temp Pulse Resp BP Pulse Ox O2 Del Method O2 Flow Rate 98 F 75 16 140/72 H 96 Nasal Cannula 2 03/29/23 02:00 03/29/23 06:52 03/29/23 06:52 03/29/23 02:00 03/29/23 06:52 03/29/23 06:52 03/29/23 06:52 Oxygen Flow Rate (L/min) 2 Oxygen Delivery Method Nasal Cannula Weight: 216 lb 11.43 oz Body Mass Index (BMI) 29.4 Intake & Output: Intake and Output for Last 24 Hours 03/27/23 03/28/23 03/29/23 23:59 23:59 23:59 Intake Total 1443.75 / 1443.75 650 / 650 Balance 1443.75 / 1443.75 650 / 650 Lab / Micro Data 03/28/23 05:55 03/28/23 05:55 Labs: Laboratory Results - last 24 hr 03/28/23 05:55: Platelet Estimate SLT DEC, Plt Morphology Comment LARGE, Macrocytosis 1+, Free T4 0.80 Assessment & Plan Assessment/Plan (1) ETOH abuse: (2) DEMETRIO (obstructive sleep apnea): (3) Tobacco abuse: (4) Hypokalemia:
--- NOTE | 2023-03-29 07:57 | DCINST_ITS ---
Discharge Instructions Diet Discharge Diet: No restrictions Activity Discharge Activity: Return to Normal Activity and May Not Drive Weight Bearing Status: Weight bearing as tolerated Dressing / Incision Call your doctor if you observe: Fever of 101 or Higher, Coldness, Increased Pain, Numbness or Tingling, Change in Color, Inability to urinate, Inability to have a bowel movement, Shortness of breath, Dizziness, Fainting spells, Swelling in the ankles, Chest pain, Prolonged hiccupping, Increased palpitations (irregular heartbeat) and Calf discomfort Follow Up Care When: IN 2 WEEKS Test Results: Test results from this visit will be discussed in further detail at your follow- up appointment, if applicable. Discharge Plan Admission Admit Date/Time: 03/25/23 09:52 Attending Provider: Rogelio Swanson Primary Care Provider: Odalys Cardoso Consulting Providers: Kaylee Maraivlla Discharge Orders/Prescriptions Prescriptions: New cyanocobalamin (vitamin B-12) 500 mcg Tablet 1,000 mcg PO BREAKFAST 30 Days Qty: 30 2RF nicotine 21 mg/24 hr Patch 24 Hour 21 mg transdermal DAILY Qty: 30 0RF folic acid 1 mg Tablet 1 mg PO DAILY@0800 30 Days Qty: 30 2RF thiamine HCl (vitamin B1) [Vitamin B-1] 100 mg Tablet 100 mg PO DAILYCM Qty: 30 2RF Continued furosemide 20 mg tablet 20 mg PO DAILY Referrals / Follow Up: Odalys Cardoso, GLASS PROCESSING WORKER-C [Primary Care Provider] - Disposition Disposition (needs filled in before D/C Order can be placed): Home, Self Care
[2023-03-29 08:32] VITALS: BP 156/95; PULSE 89; RESP 18; TEMP 36.3; O2SAT 100
[2023-03-29] MEDS: Cyanocobalamin 500 MCG Tablet 1000 MCG PO (08:46)
[2023-03-29] MEDS: hydrOXYzine PAM 25 MG Capsule 50 MG PO (08:46)
[2023-03-29] MEDS: Furosemide 20 MG Tablet PO (08:46)
[2023-03-29] MEDS: Thiamine Hydrochloride 100 MG Tablet PO (08:47)
[2023-03-29] MEDS: Folic Acid 1 MG Tablet PO (08:47)
[2023-03-29 10:11] VITALS: O2SAT 100; O2SAT 96
--- NOTE | 2023-03-29 10:35 | DS.PCM_ITS ---
Providers Date of Admission: 03/25/23 Date of Discharge: 03/29/23 Primary Care Physician: Odalys Cardoso, TARA-C Reason For Visit: ETOH DETOX Diagnosis Discharge Diagnosis (1) ETOH abuse: Status: Acute Code(s): F10.10 - Alcohol abuse, uncomplicated (2) DEMETRIO (obstructive sleep apnea): Status: Acute Code(s): G47.33 - Obstructive sleep apnea (adult) (pediatric) (3) Tobacco abuse: Status: Acute Code(s): Z72.0 - Tobacco use (4) Hypokalemia: Status: Acute Code(s): E87.6 - Hypokalemia Plan This is a 52-year-old gentleman being admitted for medical management of acute alcohol withdrawal. #Acute alcohol withdrawal syndrome with history of chronic alcohol use dependence and tolerance: Patient was admitted on MedSurg floor. Patient on phenobarbital based order set along with other adjunctive medications as needed for alcohol withdrawal symptom control. CIWA monitor. CIWA monitoring. -EtOH level 109 Patient plans to follow-up with [facility] in [place] for follow-up treatment services #Hypoxia?improved and resolved. -Acute hypoxia exact etiology unclear, had desaturation of 86% yesterday evening and was placed on O2 Patient might have underlying COPD and DEMETRIO, noncompliant with CPAP. Chronic smoking history since age of 22 a pack per day. Patient had walking pulse oximetry/Home oxygen qualification test and did not require oxygen at the time of discharge. Advised to continue incentive spirometry. Follow-up in pulmonary clinic. #Chronic macrocytic anemia -Without acute anemia, likely secondary to nutritional deficiencies, start B12 and folate and will check levels B12 lower limit of normal, folate low, continue replacement. Prescription given for vitamin B12, folate and thiamine. #Thrombocytopenia -Likely secondary to underlying liver dysfunction from chronic alcohol use -We will likely need repeat CBC on outpatient basis and may need to have further work-up and management moving forward #Elevated TSH -TSH 5.43 -We will check free T4 #Hypokalemia?resolved -Replace and resolved #Tobacco use -Advise cessation -Patient agreeable to nicotine replacement #History of provoked DVT and PE -In 2014 after a spinal fusion and laminectomy -Completed anticoagulation and has not required any since per patient #DVT ppx: Lovenox subcu Medications at Discharge Home Medications furosemide 20 mg tablet 20 mg PO DAILY 03/25/23 cyanocobalamin (vitamin B-12) 500 mcg tablet 1,000 mcg (2 x 500 mcg) PO BREAKFAST 30 days #30 tabs 03/29/23 folic acid 1 mg tablet 1 mg PO DAILY@0800 30 days #30 tabs 03/29/23 nicotine 21 mg/24 hr daily transdermal patch 21 mg transdermal DAILY #30 ea 03/29/23 thiamine HCl (vitamin B1) 100 mg tablet (Vitamin B-1) 100 mg PO DAILYCM #30 tabs 03/29/23 Physical Exam Narrative Seen and examined. Physical exam General: Alert, Oriented x3, Cooperative HEENT: Atraumatic, PERRLA, EOMI, Normocephalic Oral: No Gingival or Mucosal Lesions/ Ulcerations Neck: Supple, No JVD, Negative Carotid Bruits Lungs: Air entry diminished in bilateral lung bases. No crepitation/rhonchi Cardiovascular: Regular rate, Regular Rhythm, Normal S1, Normal S2, No murmurs Abdomen: Bowel Sounds Present, Soft, Non Tender, Non-Distended : No renal angle tenderness. No suprapubic tenderness. Extremities: No edema, Capillary Refill Less than 3 Seconds Skin: No rashes, No breakdown Musculoskeletal: No Tenderness to Palpation of Joints or Extremities. Tremors are much improved. Neurological: Cranial nerves II-XII grossly intact, DTR 2+/4 and Symmetrical, Neuro grossly intact Psych/Mental Status: Normal Affect, Appropriate. Weight / BMI Weight Weight: 216 lb 11.43 oz Body Mass Index (BMI) 29.4 ABG / Lab / Microbiology Data 03/28/23 05:55 03/28/23 05:55 D/C Instructions Discharge Diet: No restrictions Weight Bearing Status: Weight bearing as tolerated Call your doctor if you observe: Fever of 101 or Higher, Coldness, Increased Pain, Numbness or Tingling, Change in Color, Inability to urinate, Inability to have a bowel movement, Shortness of breath, Dizziness, Fainting spells, Swelling in the ankles, Chest pain, Prolonged hiccupping, Increased palpitations (irregular heartbeat) and Calf discomfort When: IN 2 WEEKS Meaningful Use Info Meaningful Use Diagnoses (Choose all that apply): None applicable Discharge Plan Admission Admit Date/Time: 03/25/23 09:52 Attending Provider: Rogelio Swanson Primary Care Provider: Odalys Cardoso Consulting Providers: Kaylee Maravilla Discharge Orders/Prescriptions Prescriptions: New cyanocobalamin (vitamin B-12) 500 mcg Tablet 1,000 mcg PO BREAKFAST 30 Days Qty: 30 2RF nicotine 21 mg/24 hr Patch 24 Hour 21 mg transdermal DAILY Qty: 30 0RF folic acid 1 mg Tablet 1 mg PO DAILY@0800 30 Days Qty: 30 2RF thiamine HCl (vitamin B1) [Vitamin B-1] 100 mg Tablet 100 mg PO DAILYCM Qty: 30 2RF Continued furosemide 20 mg tablet 20 mg PO DAILY Referrals / Follow Up: Odalys Cardoso, INSTRUCTIONAL SUPPORT SERVICES DIRECTOR-C [Primary Care Provider] - Dante Raines DO [Med Staff - Active Staff] - Within 2 Weeks (Hypoxia, suspected COPD and Sleep apnea) Disposition Disposition (needs filled in before D/C Order can be placed): Home, Self Care Charges/Coding Visit Charges Inpatient E&M: 64196 Disch Hosp >30min
== END 2023-03-29 12:04 | disposition home or self-care (01) | DRG 897 ==
LOC: ED 10:23 → MS3 10:39
PROVIDERS: Admitting Provider Internal Medicine; Emergency Provider Emergency Medicine; PCP Nurse Practitioner Family; Visit Provider Internal Medicine
DX: F10.239 Alcohol dependence with withdrawal, unspecified (principal); D52.0 Dietary folate deficiency anemia; D69.59 Other secondary thrombocytopenia; E87.6 Hypokalemia; F17.210 Nicotine dependence, cigarettes, uncomplicated; G47.33 Obstructive sleep apnea (adult) (pediatric); Y90.6 Blood alcohol level of 120-199 mg/100 ml; R09.02 Hypoxemia; R94.6 Abnormal results of thyroid function studies; Z98.1 Arthrodesis status; Z91.199 Patient's noncompliance with other medical treatment and regimen due to unspecified reason; Z86.711 Personal history of pulmonary embolism; Z86.718 Personal history of other venous thrombosis and embolism
CPT/HCPCS: 36415; 80053; 80307; 82077; 82607; 82746; 83690; 83735; 84439; 84443; 85025; 85610; 85730; 94640; 99284; J7050

== ENCOUNTER 2024-04-10 17:00 | Emergency (ER) | payer OTHER, SELFPAY ==
[2024-04-10 17:01] VITALS: BP 148/78; PULSE 87; RESP 18; TEMP 36.4; O2SAT 99; BMI 26.5
--- NOTE | 2024-04-10 17:21 | EDS_ITS ---
<Statement entered by Kori Barrios MD - 04/10/24 19:27> I have personally performed a face to face assessment of the patient and have reviewed the JUAN PABLO Note. Patient presents secondary to puncture wound to his left foot. 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 3 days ago he suffered a puncture wound through his work boot and into his foot. He had a small piece of metal spring stuck in his foot. He is unsure if he needs antibiotics or tetanus update so presents for evaluation. Patient observed ambulating to the room without difficulty. Heart is regular rate and rhythm. Strong distal pulses noted throughout. Left foot examination reveals a puncture wound on the plantar surface at the base of the second toe. There are some yellow granulation tissue. There is no thick drainage, signs of cellulitis, or evidence of tenosynovitis on exam. Left foot x-rays reveal no evidence of radiopaque foreign body. Wound is cleansed and dressed. He will be treated with a course of clindamycin. He is given podiatry information for follow-up. HPI History of Present Illness Chief Complaint: Wound Narrative Narrative: 53-year-old male was wearing work boots and working on his car 3 days ago and states when he changes socks he noticed a small spot of blood but did not think much of it. The next day he looked at his foot and noticed there was a piece of metal spring sticking out of the sole of his foot under the second toe. He removed it. He states he has decreased sensation in both feet from prior back surgeries. He is not diabetic. He cleansed the wound with peroxide but is here to see if he needs a tetanus shot or antibiotics. [facility] Medical History (Updated 04/10/24 @ 17:38 by MEGAN Wilson) Smoker COPD (chronic obstructive pulmonary disease) Depression Home Medications ?Medication ?Instructions ?Recorded ?Last Taken ?Type furosemide 20 mg tablet 20 mg PO DAILY 03/25/23 03/24/23 History cyanocobalamin (vitamin B-12) 500 1,000 mcg (2 x 500 mcg) PO 03/29/23 Unknown Rx mcg tablet BREAKFAST 30 days #30 tabs folic acid 1 mg tablet 1 mg PO DAILY@0800 30 days #30 tabs 03/29/23 Unknown Rx nicotine 21 mg/24 hr daily 21 mg transdermal DAILY #30 ea 03/29/23 Unknown Rx transdermal patch thiamine HCl (vitamin B1) 100 mg 100 mg PO DAILYCM #30 tabs 03/29/23 Unknown Rx tablet (Vitamin B-1) clindamycin HCl 150 mg capsule 450 mg (3 x 150 mg) PO TID 7 days 04/10/24 Unknown Rx #63 caps Allergy/AdvReac Type Severity Reaction Status Date / Time No Known Allergies Allergy Verified 03/25/23 08:22 Surgical History (Updated 03/25/23 @ 08:[address] Scott Robin DO) History of lumbar fusion History of lumbar laminectomy Social History Smoking Status: Current every day smoker tobacco type: cigarettes ROS ROS ED ROS Narrative Constitutional: Negative for fever, chills. Neuro: Negative for motor dysfunction. Skin: Positive for wound. EXAM Physical Exam Narrative Exam Narrative: CONST: Patient sitting in no acute distress. EYES: Normal inspection. NECK: Normal inspection. RESP: No respiratory distress, CTAB. CVS: Regular rate and rhythm, no murmur, no gallop. SKIN: Color normal, no rash, warm, dry, intact. EXTREMITIES: Normal appearance of both lower extremities. Full range of motion, decreased sensation to light touch in both feet which is chronic, 2+ DP pulses. No edema or erythema. 1 cm circular puncture wound on the sole of the left foot at the base of the second toe with moist yellow granulation tissue. No fluctuance or crepitus, no odor or drainage expressed. NEURO: Alert and answering questions appropriately. PSYCH: Normal affect. Const Vital Signs: 04/10/24 17:01 Temperature 97.6 F L Temperature Source Temporal Pulse Rate 87 Respiratory Rate 18 Blood Pressure 148/78 H Blood Pressure Mean 101 Pulse Ox 99 Oxygen Delivery Method Room Air MDM MDM MDM Narrative Medical decision making narrative: Patient had a metal spring puncture through his rubber soled work boot into the base of the second toe 3 days ago. He has neuropathy from prior back surgeries so did not initially notice and remove the foreign body 24 hours later. He appears well and nontoxic and is afebrile stable vital signs. A 1 cm puncture wound has moist yellow granulation tissue but no signs of cellulitis or abscess. Extremities neurovascular intact. X-ray shows no foreign body or osseous abnormality. He was treated with a tetanus booster and the first dose of clindamycin with instructions to follow-up with the hair clipper power to have it reexamined next week. He was discharged in stable condition. Radiography Diagnostic Testing: Clinical Impression(s) from Imaging Studies Foot X-Ray 04/10/24 17:25 IMPRESSION: Negative left foot x-rays. Electronically Signed: Jeovany Starks MD at 17:44 EDT , ED attending interpretation of left foot shows no evidence of retained foreign body, no fracture or osseous abnormality. Discharge Plan Triage Chief Complaint: Wound ED Midlevel Provider: Cassie Costello ED Provider: Kori Barrios Dx/Rx/DC Orders Clinical Impression: Puncture wound of left foot Instructions: ED Puncture Wound (Foot) Prescriptions: New clindamycin HCl 150 mg capsule 450 mg PO TID 7 Days Qty: 63 0RF No Action furosemide 20 mg tablet 20 mg PO DAILY cyanocobalamin (vitamin B-12) 500 mcg Tablet 1,000 mcg PO BREAKFAST 30 Days Qty: 30 2RF nicotine 21 mg/24 hr Patch 24 Hour 21 mg transdermal DAILY Qty: 30 0RF folic acid 1 mg Tablet 1 mg PO DAILY@0800 30 Days Qty: 30 2RF thiamine HCl (vitamin B1) [Vitamin B-1] 100 mg Tablet 100 mg PO DAILYCM Qty: 30 2RF Primary Care Provider: Odalys Cardoso Referrals: Radu Ballesteros DPM [Med Staff - Active Staff] - Odalys Cardoso DENTAL SPECIALIST-C [Primary Care Provider] - Activity Restrictions/Additional Instructions: Clean once a day and keep covered. It is very importantly follow-up with the hair clipper power next week to have it reevaluated. Take all the antibiotics as prescribed. If you notice the area is more red, swollen, or has pus or you develop a fever come back to the ER. Print Language: Mongolian Disposition Disposition: Home, Self Care
--- NOTE | 2024-04-10 17:25 | RAD_ITS ---
EXAM: XR LEFT FOOT COMPLETE, 3 OR MORE VIEWS CLINICAL INDICATION: wound, h/o foreign body TECHNIQUE: Frontal, lateral and oblique views of the left foot. COMPARISON: No relevant prior studies available. FINDINGS: BONES/JOINTS: Unremarkable. No acute fracture. No subluxation. Normal alignment. Preservation of the joint space. No sclerotic or destructive changes observed. SOFT TISSUES: Unremarkable. No soft tissue swelling or gas. No radiopaque foreign body. RAD/Foot min 3 Views IMPRESSION: Negative left foot x-rays. Electronically Signed: Jeovany Starks MD at 17:44 EDT ,
[2024-04-10] MEDS: Diphth,Pertuss(Acell),Tet Vac 0.5 ML Vial IM (17:36)
[2024-04-10] MEDS: Clindamycin HCl 150 MG Capsule 450 MG PO (18:06)
[2024-04-10 18:10] VITALS: BP 148/78; PULSE 87; RESP 18; TEMP 36.4; O2SAT 99
== END 2024-04-10 18:11 | disposition home or self-care (01) ==
PROVIDERS: Emergency Provider Emergency Medicine; PCP Nurse Practitioner Family; Visit Provider Emergency Medicine
DX: S91.332A Puncture wound without foreign body, left foot, initial encounter (principal); X58.XXXA Exposure to other specified factors, initial encounter; F17.210 Nicotine dependence, cigarettes, uncomplicated; Z23 Encounter for immunization
CPT/HCPCS: 73630; 90471; 90715; 99282